=== PATIENT | female | born 1985 | race Caucasian/White ===

== ENCOUNTER → 2016-06-12 | Outpatient (CLI) | payer MEDICAID ==
--- NOTE | 2016-06-12 12:46 | US ---
June 12, 2016 Dear [facility] Providers, Thank you for allowing us to see your patient regarding anatomy. As you know she is a 30 year-old gr avida 3, para 2. Her due date is 10/25/16 which is based on 15 week u/s. Her current gestational age based on this dating is 21 weeks 5 days. Number of fetuses: 1 Placental location: posterior Cord Insertion: Central presentation: breech Cervix: 4.5 cm MVP: 6.3 cm The adnexa were evaluated. No pathology was seen. Right ovary not seen Left ovary seen Measurements: Biparietal diameter: 47 mm 20 weeks, 2 days Head circumference: 191 mm 21 weeks, 3 days Abdominal circumference: 166 mm 21 weeks, 5 days Femur length: 34 mm 2 weeks, 5 days Humerus length: 33 mm 21 weeks, 0 days Transcerebellar diameter: 24 mm 22 weeks, 1 days Average ultrasound age: 21 weeks, 1 days Estimated weight: 414 gm weight percentile: 19 % ANATOMY Upper extremities: Normal Lower extremities: Normal Supratentorial brain: Normal Lateral ventricle: 6.1 mm Posterior fossa: Normal Cisterna Magna: 3.6 mm Spine: Suboptimal secondary to position but no known abnormalities Nuchal fold: 4.7 mm Face: Normal nose, lip, profile, alveolar ridge Heart: Normal rate, rhythm, axis, 4 chamber view, LVOT, RVOT, IVS Stomach: Normal Diaphragm: Normal Umbilical cord insertion: Normal Right kidney: Normal Left kidney: Normal Bladder: Normal Number of cord vessels: Three. Impression: This is a 30 year-old 3, para 2 at 21 weeks, 5 days gestation. 1. SIUP with biometry cw sta ameena gestational age. Nl ANJELICA. No anatomic abnormalities noted. 2. I was happy to review these findings with your patient today. Thank you for allowing me to see your patient. NO E&M charged today. Mariella Ramsay MD Diagnosis Division of Maternal Medicine Department of Obstetrics and Gynecology [facility]
--- NOTE | 2016-06-12 18:29 | US ---
Complete Obstetric Ultrasound June 12, 2016 Indication: Evaluate growth and anatomy. 30-year-old 3 para 2. The estimated gestational age by LMP is 21 weeks and 5 days yielding an EDC of October 18, 2016. Comparison: May 01, 2016 Findings: Number: 1 Presentation: Breech Placental location: Posterior Cervix: 4.5 cm Maximum vertical pocket: 6.3 cm heart rate: 147 bpm Ovaries: Not imaged today Biometry: Biparietal diameter: 47 mm 20 weeks, and 2 days Head circumference: 190 mm 21 weeks, and 3 days Abdominal circumference: 165 mm 21 weeks, and 5 days Femur length: 34 mm 20 weeks, and 5 days Humerus length: 32 mm 21 weeks, and 0 days Transcerebellar diameter: 24 mm 22 weeks, and 1 day HC/AC: 1.15 (1.06 - 1.25) FL/BPD: 72% FL/AC: 21% Average ultrasound age: 21 weeks, and 1 day EDC based on today's average ultrasound age: October 22, 2016 Estimated weight is 404 grams +/- 59 grams. The estimated weight is at the 19th percentil e based on previous dating. Anatomy Survey: Supratentorial brain: Normal lateral ventricle 6.0 mm Posterior fossa: Normal Spine: Normal Nuchal fold: Normal 4.7 mm Nose and lips: Normal Facial profile: Normal nasal bone 7 mm Heart: Four-chamber heart. Intact interventricular septum. Cardiac outflow tracts: Normal Stomach: Normal Umbilical cord insertion: Normal Kidneys: Normal, no pyelectasis Bladder: Normal Number of cord vessels: Three Upper extremities: Normal Lower extremities: Normal. No clubbing. Impression: 1. Living thompson in vertex presentation. Size concordant with dates. The estimated ge stational age by biometry is 21 weeks and 1 day yielding an EDC of October 22, 2016. The estimated gestational age by LMP is 21 weeks and 5 days . 2. Unremarkable anatomy. No anomalies detected.
== END ==
LOC: FIMAGING 10:18
PROVIDERS: ATTEND Advanced Practice Midwife
DX: Z34.82 Encounter for supervision of other normal pregnancy, second trimester (principal); Z3A.21 21 weeks gestation of pregnancy

== ENCOUNTER 2016-09-21 15:20 | Observation (INO) | payer MEDICAID ==
[2016-09-21] MEDS ORDERED: AMPICILLIN SODIUM 1 GM in NS 100 ML IV SCH ×2 (16:00→20:00)
[2016-09-21] MEDS ORDERED: AMPICILLIN SODIUM 2 GM in NS 100 ML IV ONE (16:00)
[2016-09-21] MEDS ORDERED: BETAMETHASONE IM SYRINGE IM ONE (16:00)
[2016-09-21 17:19] LABS: % IMMATURE GRANULYOCYTES 0.9 % (0.0-1.1); ABSOLUTE IMMATURE GRANULOCYTES 0.12 10^3/uL (0.00-0.10); ADD DIFF? NO; ADD MORPH? NO; ADD SCAN? NO; ATYPICAL LYMPHOCYTE FLAG 40 (0-99); FRAGMENT RBC FLAG 0 (0-99); HEMATOCRIT 33.6 % (38.0-47.0); HEMOGLOBIN 11.7 g/dL (12.6-16.3); LEFT SHIFT FLG 10 (0-99); LIPEMIA HEMOLYSIS FLAG 90 (0-99); MEAN CELL HEMOGLOBIN 33.5 pg (27.9-34.1); MEAN CELL HEMOGLOBIN CONCENTR. 34.8 g/dL (32.4-36.7); MEAN CELL VOLUME 96.3 fL (81.5-99.8); MEAN PLATELET VOLUME 9.2 fL (8.7-11.7); PLATELET CLUMPS FLAG 0 (0-99); PLATELET COUNT 250 10^3/uL (150-400); RED BLOOD CELL COUNT 3.49 10^6/uL (4.18-5.33); RED CELL DISTRIBUTION WIDTH 13.5 % (11.5-15.2)
--- NOTE | 2016-09-21 17:54 | SOAPPROG ---
SOAP Progress Note Assessment/Plan: Assessment: 36w1d with ctx, stable SVE, no e/o labor status reassuring HSV, on ppx, no lesions Plan: Discharge home with precautions Return to hospital tomorrow for 2nd BMTZ injection F/u with center as scheduled 09/21/16 17:56 09/21/16 17:57 Subjective: 30 yo at 36w1d, care at Center. Seen in office today for consult for ECV, however at time of presentation was found to be vertex, but also with regular contractions. SVE was 2.5cm/50/-3. No ROM. NST reactive. Pt desired to go home and return for repeat check. At that time her contractions were stronger and more regular and she had progressed to 3 cm, so she was sent to L&D for monitoring, fluid, IV ampicillin for known GBS pos, and betamethasone for risk of delivery < 36 weeks. On L&D her contractions resolved with IV fluids, SVE remained unchanged after 3 hours, and status was reassuring. OB records reviewed: NATALIYA 10/19/15 by 16 week US (discordant from LMP) A+ Antibody neg Rub immune Plts 343 Hct 13.6 RPR/HIV/HepB/Hep C NR GC/CT neg Urine cx neg GTT 1hr = 65 Neg sequential screen Meds: PNV, Vit D, acyclovir for HSV ppx (no outbreaks for many years) Objective: Laboratory Results 09/21/16 17:00 Gen: alert, awake, NAD Resp: unlabored CV: RRR Abd: gravid, soft, nontender Ext: no edema SVE: 2-3 cm/50/-3/vtx/intact Vertex confirmed on US FHR baseline 130, mod kayleen, + accels, no decels Contractions: initially every 4-5 minutes, then only irritability ICD10 Worksheet Patient Problems: Problems Problem Status Onset contractions Acute
== END 2016-09-21 17:45 | disposition home or self-care (01) ==
LOC: FLD 15:20
PROVIDERS: ADMIT Obstetrics & Gynecology; ATTEND Obstetrics & Gynecology
DX: O47.03 False labor before 37 completed weeks of gestation, third trimester (principal); Z3A.36 36 weeks gestation of pregnancy
CPT/HCPCS: 59025; 96372; G0378; J0290; J0702

== ENCOUNTER 2016-09-22 17:00 | Observation (INO) | payer MEDICAID ==
[2016-09-22] MEDS ORDERED: BETAMETHASONE IM SYRINGE IM ONE (17:30)
--- NOTE | 2016-10-02 13:05 | GDS ---
[f rep st] DISCHARGE SUMMARY /[id number]/MODL
== END 2016-09-22 17:30 | disposition home or self-care (01) ==
LOC: FLD 17:00
PROVIDERS: ADMIT Obstetrics & Gynecology; ATTEND Obstetrics & Gynecology
DX: Z34.93 Encounter for supervision of normal pregnancy, unspecified, third trimester (principal); Z3A.36 36 weeks gestation of pregnancy
CPT/HCPCS: J0702

== ENCOUNTER 2016-09-29 00:15 | Observation (INO) | payer MEDICAID | END 2016-09-29 03:50 | disposition home or self-care (01) | LOC: FLD 00:15 | PROVIDERS: ADMIT Obstetrics & Gynecology; ATTEND Obstetrics & Gynecology | DX: Z03.79 Encounter for other suspected maternal and fetal conditions ruled out (principal); Z3A.00 Weeks of gestation of pregnancy not specified | CPT/HCPCS: G0378 ×2 ==

== ENCOUNTER → 2016-10-05 | Outpatient (CLI) | payer MEDICAID | LOC: FIMAGING 16:10 | PROVIDERS: ATTEND Obstetrics & Gynecology | DX: Z34.83 Encounter for supervision of other normal pregnancy, third trimester (principal) ==

== ENCOUNTER 2016-10-16 | Inpatient (IN) | payer MEDICAID ==
[2016-10-16] MEDS ORDERED: TERBUTALINE SULFATE 1 MG/ML VIAL IV PRN (00:21)
[2016-10-16] MEDS ORDERED: OXYTOCIN/RINGERS LACTATE 1,000 ML IV PRN (00:21)
[2016-10-16] MEDS ORDERED: EPSOM SALT 454 GM TP PRN (00:21)
[2016-10-16] MEDS ORDERED: LIDOCAINE 1% 30 ML SDV SC PRN (00:21)
[2016-10-16] MEDS ORDERED: LR 1,000 ML IV PRN (00:21)
[2016-10-16] MEDS ORDERED: AMPICILLIN SODIUM 2 GM in NS 100 ML IV ONE (00:21)
[2016-10-16] MEDS ORDERED: OLIVE OIL 118 ML BTL MISC PRN (00:21)
[2016-10-16] MEDS ORDERED: OLIVE OIL 118 ML BTL ONE (00:30)
[2016-10-16] MEDS ORDERED: AMMONIA AROMATIC 1 EACH AMP IH ONE (00:30)
[2016-10-16] MEDS ORDERED: LIDOCAINE 1% 30 ML SDV ONE (00:30)
[2016-10-16] MEDS ORDERED: MISOPROSTOL 200 MCG TAB ONE (00:31)
[2016-10-16] MEDS ORDERED: OXYTOCIN 10 UNIT/ML VIAL ONE (00:31)
[2016-10-16] MEDS ORDERED: TERBUTALINE SULFATE 1 MG/ML VIAL ONE (00:31)
[2016-10-16] MEDS ORDERED: PHENYLEPHRINE HCL 100 MCG/ML SYR ONE (00:48)
[2016-10-16] MEDS ORDERED: fentaNYL 2MCG/ML/BUP 0.1% RTU 100 ML BAG EP ONE (00:48)
[2016-10-16 00:49] LABS: ABSOLUTE IMMATURE GRANULOCYTES 0.13 10^3/uL (0.00-0.10); ADD DIFF? NO; ADD MORPH? NO; ADD SCAN? NO; ATYPICAL LYMPHOCYTE FLAG 0 (0-99); FRAGMENT RBC FLAG 0 (0-99); HEMATOCRIT 39.4 % (38.0-47.0); HEMOGLOBIN 13.7 g/dL (12.6-16.3); LEFT SHIFT FLG 10 (0-99); LIPEMIA HEMOLYSIS FLAG 90 (0-99); MEAN CELL HEMOGLOBIN 33.5 pg (27.9-34.1); MEAN CELL HEMOGLOBIN CONCENTR. 34.8 g/dL (32.4-36.7); MEAN CELL VOLUME 96.3 fL (81.5-99.8); MEAN PLATELET VOLUME 9.2 fL (8.7-11.7); PLATELET CLUMPS FLAG 10 (0-99); PLATELET COUNT 324 10^3/uL (150-400); RED BLOOD CELL COUNT 4.09 10^6/uL (4.18-5.33); RED CELL DISTRIBUTION WIDTH 13.7 % (11.5-15.2)
[2016-10-16] MEDS ORDERED: LR 500 ML IV SCH (01:30)
[2016-10-16] MEDS ORDERED: HYDROCORTISONE 0.5% CREAM TP PRN (02:34)
[2016-10-16] MEDS ORDERED: SIMETHICONE 80 MG TAB CHEW PO PRN (02:34)
[2016-10-16] MEDS ORDERED: DOCUSATE SODIUM 100 MG CAP PO PRN (02:34)
--- NOTE | 2016-10-16 02:34 | OBPROC ---
- Labor and Delivery Onset of Contractions Date: 10/15/16 Onset of Contractions Time: 22:00 Onset of Contractions Type: Spontaneous Rupture of Membranes Date: 10/16/16 Rupture of Membranes Time: 02:00 Rupture of Membranes Type: Artificial Amniotic Fluid Color: Meconium Stained-Heavy Dilation Complete Time: 02:00 Delivery Type: Spontaneous Placenta Delivery Date: 10/16/16 EBL: 100 ml Complications: None - Medications Labor Augmentation/Induction Meds Used: None Anesthesia: Epidural - Info Infant A Delivery Date: 10/16/16 Delivery Time: 02: Sex of : Female Score (1 Min): 8 Score (5 Min): 9 (Patient progressed rapidly in labor, received one dose of ampicillin for GBS prophylaxis, had thick meconium stained fluid, delivered easily vias 4 pushes, infant and mother doing well.)
[2016-10-16] MEDS: IBUPROFEN 600 MG TAB PO PRN ×4 (02:46→20:14)
[2016-10-16] MEDS ORDERED: AMPICILLIN SODIUM 1 GM in NS 100 ML IV SCH (04:21)
[2016-10-16 22:49] VITALS: RESP 18; O2SAT 95
[2016-10-17] MEDS: IBUPROFEN 600 MG TAB PO PRN (02:08)
[2016-10-17 08:59] VITALS: BP 123/80; PULSE 80; TEMP 97.1
--- NOTE | 2016-10-17 10:31 | OBGCSDC ---
General Delivery Information - General Info : 3 Para: 3 Delivery Physician/CNM: Pamela Cortez Admission Date: 10/15/16 Labs: Patient ABO/Rh A POSITIVE 10/16/16 00:25 Hct 39.4 % (38.0-47.0) 10/16/16 00:25 Vaginal - Diagnosis IUP (Weeks): 38 5/7 Labor: Spontaneous Rupture of Membranes Type: Artificial Amniotic Fluid Color: Meconium Stained-Heavy Complications: None - Operations/Procedures Delivery Type: Spontaneous Procedures: Amniotomy Anesthesia: Epidural - Delivery EBL: 100 ml Anesthesia: Epidural Discharge Information - Discharge Information Discharge Medications: Ibuprofen, Vitamins Condition: Good Instruction/Follow Up: Six Weeks Discharge Physician/CNM: Jing Mcpherson Discharge Date: 10/17/16 Dictated: No
== END 2016-10-17 09:50 | disposition home or self-care (01) | DRG 775 ==
LOC: FLD → FOB 04:11
PROVIDERS: ADMIT Obstetrics & Gynecology; ATTEND Obstetrics & Gynecology
PROC: 10907ZC Drainage of Amniotic Fluid, Therapeutic from Products of Conception, Via Natural or Artificial Opening (ICD-10-PCS; principal; 2016-10-16)
PROC: 10E0XZZ Delivery of Products of Conception, External Approach (ICD-10-PCS; principal; 2016-10-16)
DX: O77.0 Labor and delivery complicated by meconium in amniotic fluid (principal); O99.820 Streptococcus B carrier state complicating pregnancy; Z3A.38 38 weeks gestation of pregnancy; Z37.0 Single live birth
CPT/HCPCS: J0290; J2370; J2590; J3105